=== PATIENT | female | born 1985 | race African-American/Black ===

== ENCOUNTER 2022-09-13 02:08 | Emergency (ER) | payer BC, OTHER, SELFPAY ==
[2022-09-13] VITALS (7 sets, daily range): BP systolic 133–173; BP diastolic 56–89; PULSE 77–92; RESP 15–21; O2SAT 95–100
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
[2022-09-13] MEDS: MORPHINE SULFATE (*CRX) 4 MG/ML INJ IV PUSH (02:23)
[2022-09-13] MEDS: ONDANSETRON INJ 4 MG/2 ML VIAL (02:23)
[2022-09-13] MEDS: SODIUM CHLORIDE 0.9% IV 1,000 ML 999 ML IV CONT (02:25)
[2022-09-13] MEDS: TETANUS,DIPHTHERIA,AC PERTUSSIS ADULT (0.5 ML) BOOSTRIX IM (03:13)
[2022-09-13] MEDS: ceFAZolin SODIUM 1 GM VIAL 2 GM IV PUSH (03:13)
[2022-09-13 03:15] LABS: Basophils Percent Auto 0.2 % (0.2-1.2); Eosinophils Absolute Auto 0.2 K/mm3 (0-0.3); Eosinophils Percent Auto 1.6 % (0-4.4); Hematocrit 37.8 % (37.0-47.0); Hemoglobin 11.6 g/dL (12.0-15.0); Immature Granulocyte Absolute 0.08 K/mm3 (0.00-0.031); Immature Granulocyte Percent A 0.6 % (0-0.5); Lymphocytes Absolute Auto 4.51 K/mm3 (0.9-3.2); Lymphocytes Percent Auto 34.1 % (18.3-44.2); Mean Corpuscular HGB Conc 30.7 g/dl (32-36); Mean Corpuscular Hemoglobin 23.4 pg (26-34); Mean Corpuscular Volume 76.4 fl (80-100); Mean Platelet Volume 10.6 fl (7.4-10.4); Monocytes Absolute Auto 0.9 K/mm3 (0.1-0.6); Monocytes Percent Auto 6.8 % (2.6-8.5); Neutrophils Absolute Auto 7.5 K/mm3 (1.3-6.7); Neutrophils Percent Auto 56.7 % (45.5-73.1); Platelet Count Result 377 k/mm3 (150-375); Red Blood Count 4.95 M/mm3 (4.2-5.4); White Blood Count 13.2 K/mm3 (4.5-10.0)
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
== END 2022-09-13 03:46 | disposition short-term general hospital (02) ==
PROVIDERS: Emergency Provider Emergency Medicine; PCP Registered Nurse
DX: S82.192B Other fracture of upper end of left tibia, initial encounter for open fracture type I or II (principal); Z23 Encounter for immunization; W34.00XA Accidental discharge from unspecified firearms or gun, initial encounter
CPT/HCPCS: 36415; 73560; 85025; 90471; 90714; 90715; 96361; 96374; 96375; 99285; J0690; J2270; J2405; J7030